=== PATIENT | female | born 1990 | race Caucasian/White ===

== ENCOUNTER 2016-12-07 19:37 | Emergency (ER) | payer BC ==
[~2016-12-07] VITALS: Ht 149.9 cm; Wt 94.0 kg
[~2016-12-07 19:37] MED LIST: AUG875 PO
[2016-12-07 19:46] VITALS: Ht 149.9 cm; Wt 94.0 kg
[2016-12-07] MEDS ORDERED: ONDANSETRON 4 MG INJ IV STA (21:53)
[2016-12-07] MEDS ORDERED: morphine 4 MG/ML VIAL IV STA (21:53)
[2016-12-07 22:13] LABS: ADD UMIC YES; URINE BILIRUBIN (Dip) NEGATIVE (NEGATIVE); URINE BLOOD (Dip) NEGATIVE (NEGATIVE); URINE COLOR LT. YELLOW (YELLOW); URINE GLUCOSE (Dip) NEGATIVE (NEGATIVE); URINE KETONES (Dip) TRACE (NEGATIVE); URINE LEUKOCYTE ESTERASE (Dip) TRACE (NEGATIVE); URINE NITRITE (Dip) NEGATIVE (NEGATIVE); URINE TOTAL PROTEIN (Dip) NEGATIVE (NEGATIVE); URINE UROBILINOGEN (Dip) 0.2 E.U./dL (0.1-1.0)
[2016-12-07 22:21] LABS: BACTERIA,URINE MODERATE
[2016-12-07 22:22] LABS: URINE RBCS 0-2 /HPF (0)
[2016-12-07 22:22] LABS: ADD SCAN DIFF NO
[2016-12-07 22:24] LABS: BASOPHILS % 0.4 % (0.0-2.0); EOSINOPHILS # 0.1 10^3/ul (0.0-0.5); EOSINOPHILS % 0.6 % (0.0-7.0); HEMATOCRIT 40.1 % (37.0-47.0); HEMOGLOBIN 13.2 g/dl (12.0-16.0); LYMPHOCYTES # 1.6 10^3/ul (0.8-2.9); LYMPHOCYTES % 16.3 % (15.0-51.0); MEAN CORPUSCULAR HEMOGLOBIN 30.5 pg (29.0-33.0); MEAN CORPUSCULAR HGB CONC 32.9 g/dl (32.0-37.0); MEAN CORPUSCULAR VOLUME 92.6 fl (82.0-101.0); MEAN PLATELET VOLUME 9.7 fl (7.4-10.4); MONOCYTE # 0.8 10^3/ul (0.3-0.9); MONOCYTES % 8.1 % (0.0-11.0); PLATELET COUNT 401 10^3/UL (140-415); RED BLOOD COUNT 4.33 10^6/ul (4.20-5.40); RED CELL DISTRIBUTION WIDTH 12.9 % (11.5-14.5); WHITE BLOOD COUNT 9.5 10^3/ul (4.8-10.8)
[2016-12-07 22:38] LABS: ALBUMIN 4.3 g/dl (3.3-4.9); POTASSIUM 4.2 mmol/L (3.5-5.1)
[2016-12-07 22:40] LABS: BILIRUBIN,INDIRECT 0.1 mg/dl (0-1.1); BILIRUBIN,TOTAL 0.1 mg/dl (0.2-1.3); CREATININE 0.55 mg/dl (0.44-1.00)
[2016-12-07 22:41] LABS: ALBUMIN/GLOBULIN RATIO 1.07; CALCIUM 9.5 mg/dl (8.4-10.2); TOTAL PROTEIN 8.3 g/dl (6.1-8.1)
--- NOTE | 2016-12-07 23:33 | RADRPT ---
PROCEDURE: Right upper quadrant ultrasound. CLINICAL INDICATION: Abdominal pain. TECHNIQUE: Multiple real-time longitudinal and transverse images of the right upper quadrant of th e abdomen were acquired utilizing a curved array transducer. Images were reviewed on a high-resoluti on PACS workstation. COMPARISON: None. FINDINGS: The pancreas is not well seen. The liver is echogenic. The liver measures 15.8 cm in length. No hepatic lesion or intrahepatic bi liary ductal dilatation is seen. The portal vein is patent with hepatopetal flow. There is a 2 cm non mobile gallstone in the gallbladder neck. The gallbladder wall is not thickened. There is no pericholecystic fluid. The sonographic Coburn's sign is negative. The common bile duct measures 3 mm in diameter, not dilated. The right kidney measures 11.9 cm in length. Renal echogenicity is normal. A 9 mm echogenic focus i n the right renal sinus might represent a nonobstructing stone. There is no renal mass or hydroneph rosis. The visualized portions of the aorta and IVC are unremarkable. IMPRESSION: 1. Cholelithiasis without evidence of cholecystitis. 2. No biliary dilatation. 3. Fatty infiltration of the liver. 4. Possible 9 mm nonobstructing stone in the right kidney. RPTAT: HTAR .Travis Callaway MD, MD Date Time Electronically viewed and signed by .Travis Callaway MD, on 12/07/2016 23:33 .R/
[2016-12-07] MEDS ORDERED: IBUP-1542 PO (23:50)
[2016-12-07] MEDS ORDERED: HYDR-906 PO (23:50)
[2016-12-07] MEDS ORDERED: TAMS-14 PO (23:50)
[2016-12-08 00:26] VITALS: BP 148/88; PULSE 78; RESP 18; TEMP 98.7
--- NOTE | 2016-12-08 02:26 | ERD ---
ER Documentation Chief Complaint Date/Time DATE: 12/08/16 TIME: 02:20 Chief Complaint epigastric/back/chest pain x 1 hour HPI 26-year-old female with a history of gallstones presents with epigastric abdominal pain that goes to her back for the past 1-2 days. She has had intermittent abdominal pain in the epigastric region she states that wraps to her right upper quadrant goes to her back. She reports that she has had intermittent nausea and vomiting for the past 1-2 days. She describes the pain as sharp, intermittent, and she did not try taking any medication for this. Patient denies history of fever. ROS All systems reviewed and are negative except as per history of present illness. Medications Home Meds Active Scripts Hydrocodone/Acetaminophen ([place] 5-325 Tablet) 1 Each Tablet, 1 TAB PO Q6H Y for PAIN, #15 TAB Prov:FLORENTIN DONOHUE PA-C 12/07/16 Ibuprofen* (Motrin*) 600 Mg Tab, 600 MG PO Q6, #30 TAB Prov:FLORENTIN DONOHUE PA-C 12/07/16 Tamsulosin Hcl* (Flomax*) 0.4 Mg Cap.er.24h, 0.4 MG PO BID, #30 CAP Prov:FLORENTIN DONOHUE PA-C 12/07/16 Amoxicillin-Clavulanate K* (Augmentin*) 875 Mg Tab, 875 MG PO BID for 10 Days Prov:CAM WEST MD 01/29/15 Allergies Allergies: Coded Allergies: No Known Allergy (Unverified , 12/07/16) PMhx/Soc Medical and Surgical Hx: pt denies Medical Hx, pt denies Surgical Hx History of Surgery: No Anesthesia Reaction: No Hx Neurological Disorder: No Hx Respiratory Disorders: No Hx Cardiac Disorders: No Hx Psychiatric Problems: No Hx Miscellaneous Medical Probl: Yes (GASTRITIS) Hx Alcohol Use: No Hx Substance Use: No Hx Tobacco Use: No Smoking Status: Former smoker Physical Exam Vitals Vital Signs Date Time Temp Pulse Resp B/P Pulse Ox O2 Delivery O2 Flow Rate FiO2 12/08/16 00:26 98.7 78 18 148/88 99 Room Air 12/07/16 19:46 100.9 112 20 163/91 99 Physical Exam General: Well-developed, well-nourished. The patient appears in no acute distress. HEENT: Head is normocephalic, atraumatic. No scleral icterus. Neck: Supple. Nontender. Lungs: Clear to auscultation. Normal air movement. Heart: Regular rate and rhythm. S1 and S2 are normal. No murmurs, gallops, or rubs. Abdomen: Soft, tender in the right upper quadrant as well as epigastric region. Bowel sounds are normoactive. Negative Coburn sign, no McBurney tenderness. Extremities: No clubbing or cyanosis. Normal pulses. Moving extremities x 4. No weakness. Neurologic: Alert and oriented 3. No focal deficits. Skin: Normal turgor. No rash or lesions. Result Diagram: 12/07/16220512/07/162205 Results 24 hrs Laboratory Tests Test 12/07/16 21:55 12/07/16 22:06 Urine Color LT. YELLOW Urine Clarity CLEAR Urine pH 5.5 Urine Specific Nabb >=1.030 Urine Ketones TRACE Urine Nitrite NEGATIVE Urine Bilirubin NEGATIVE Urine Urobilinogen 0.2 E.U./dL Urine Leukocyte Esterase TRACE Urine Microscopic RBC 0-2/HPF Urine Microscopic WBC 0-2/HPF Urine Epithelial Cells MANY Urine Bacteria MODERATE Urine Hemoglobin NEGATIVE Urine Glucose NEGATIVE% Urine Total Protein NEGATIVE White Blood Count 9.510^3/ul Red Blood Count 4.3310^6/ul Hemoglobin 13.2g/dl Hematocrit 40.1% Mean Corpuscular Volume 92.6fl Mean Corpuscular Hemoglobin 30.5pg Mean Corpuscular Hemoglobin Concent 32.9g/dl Red Cell Distribution Width 12.9% Platelet Count 53864^3/UL Mean Platelet Volume 9.7fl Neutrophils % 74.0% Lymphocytes % 16.3% Monocytes % 8.1% Eosinophils % 0.6% Basophils % 0.4% Nucleated Red Blood Cells % 0.0/100WBC Neutrophils # 7.010^3/ul Lymphocytes # 1.610^3/ul Monocytes # 0.810^3/ul Eosinophils # 0.110^3/ul Basophils # 0.010^3/ul Nucleated Red Blood Cells # 0.010^3/ul Sodium Level 142mmol/L Potassium Level 4.2mmol/L Chloride Level 104mmol/L Carbon Dioxide Level 24mmol/L Anion Gap 18 Blood Urea Nitrogen 10mg/dl Creatinine 0.55mg/dl Glucose Level 107mg/dl Calcium Level 9.5mg/dl Total Bilirubin 0.1mg/dl Direct Bilirubin 0.00mg/dl Indirect Bilirubin 0.1mg/dl Aspartate Amino Transf (AST/SGOT) 24IU/L Alanine Aminotransferase (ALT/SGPT) 26IU/L Alkaline Phosphatase 101IU/L Total Protein 8.3g/dl Albumin 4.3g/dl Globulin 4.00g/dl Albumin/Globulin Ratio 1.07 Lipase 64U/L Current Medications Medications (Trade) Dose Ordered Sig/Alka Route PRN Reason Start Time Stop Time Status Last Admin Dose Admin Morphine Sulfate (morphine) 4 mg ONCE STAT IV 12/07/16 21:53 12/07/16 21:54 DC 12/07/16 22:04 Ondansetron HCl (Zofran Inj) 4 mg ONCE STAT IV 12/07/16 21:53 12/07/16 21:54 DC 12/07/16 22:04 Procedures/MDM ED course: Patient had an IV line established, blood and urine were obtained. She was medicated with morphine 4 mg and Zofran 4 mg IV. The patient's abdominal pain was reexamined. Patient was sitting comfortably with improved pain. Patient was not in any distress. MDM: 26-year-old female presents with acute biliary colic, ultrasound shows gallstones however there is no pericholecystic fluid or gallbladder wall thickening. There is no leukocytosis or elevation of AST or ALT or lipase to indicate acute choledocholithiasis or obstructive process. I radiologist read the ultrasound as having a possible kidney stone on the right side, without evidence of obstruction. Given that she does not have any renal insufficiency or evidence of a UTI, I doubt septic kidney stone. Patient denies fever at home , she at this time is no pain, and her vital signs are rechecked and she does not have any fever in the emergency department. We discussed the option of getting a CT scan, however she states that she feels 100% out of pain at this time and feels comfortable being discharged home. I have asked her to follow- up with her primary care doctor for reevaluation for her gallstones to get a surgical referral. Departure Diagnosis: Primary Impression: Biliary colic Additional Impression: Epigastric pain Condition: Good Patient Instructions: Biliary Colic With Gallstone (Confirmed), Kidney Stone W / Colic Referrals: YANYJodi Mahan SAMUEL MD KOSARI, KAMBIZ M.D. LUBLIN, MATTHEW A. MD RENNER, ANDREW I MD BEJJANI, BASSAM K MD LEFF,STEFANO PINON,STEFANO RAZA Additional Instructions: Posible christian en rinon, cheque otra vez con briones doctor. CIRUJANO GENERAL Specialist:Usted tiene rachael condicin mdica que requiere que nika a un especialista dentro de los prximo SEMANA.POR FAVOR,CON BRIONES SEGUIMIENTO DE PRIMARIA PHSICIAN refferal. SI USTED NO TIENE UN MDICO GENERAL Y / O USTED NO PUEDE PAGAR lamberto a un mdico,los siguientes martinez RECURSOS sido suministrado a usted. ES BRIONES RESPONSABILIDAD PARA SER VISTOS POR EL ESPECIALISTA: FLORENTIN DONOHUE PA-C December 08, 2016 02:25
== END 2016-12-08 00:27 | disposition home or self-care (01) ==
LOC: FTE 19:37
DX: K80.50 Calculus of bile duct without cholangitis or cholecystitis without obstruction (principal); R11.2 Nausea with vomiting, unspecified; Z87.891 Personal history of nicotine dependence
CPT/HCPCS: 36415; 76705; 80053; 81001; 83690; 85025; 96374; 96375; 99285; J2270; J2405; 81003